=== PATIENT | female | born 1945 | race Caucasian/White ===

== ENCOUNTER 2020-02-04 15:27 | Outpatient (CLI) | payer OTHER, SELFPAY ==
--- NOTE | ~2020-02-04 | MM_ITS ---
EXAMINATION: MM screening [facility] BI w clint HISTORY: Screening mammogram TECHNIQUE: Craniocaudal and mediolateral oblique 3-D tomosynthesis images were obtained and synthetic 2-D images were generated. CAD analysis was submitted and interpreted. COMPARISON: 02/14/2019, 01/10/2019, 01/16/2017, 08/07/2013 BREAST PARENCHYMAL COMPOSITION: The breasts are heterogeneously dense, which may obscure small masses . FINDINGS: Scattered benign-appearing calcifications are present. There is no evidence of suspicious m ass, calcification, or architectural distortion to suggest malignancy in either breast. There has bee n no suspicious interval change. IMPRESSION: 1. No mammographic evidence of malignancy. 2. Recommend routine screening mammography in one year. BI-RADS Category 2: Benign finding(s). Reviewed, dictated and finalized at location A.
== END 2020-02-04 15:28 | disposition home or self-care (01) ==
PROVIDERS: PCP Family Medicine; Visit Provider Physician Assistant
DX: Z12.31 Encounter for screening mammogram for malignant neoplasm of breast (principal)
CPT/HCPCS: 77063; 77067

== ENCOUNTER 2020-05-17 09:25 | Emergency (ER) | payer OTHER, SELFPAY ==
--- NOTE | ~2020-05-17 | XR_ITS ---
EXAMINATION: XR chest 2V DATE: 05/17/2020 09:59 INDICATION: Cough and difficulty breathing. TECHNIQUE: frontal and lateral views of the chest were obtained. COMPARISON: Chest radiograph dated 03/19/2018 FINDINGS: Calcified right middle lobe nodule consistent with old granulomatous disease. No other airspace opaci ties, pulmonary edema, pleural effusion or pneumothorax. The cardiomediastinal silhouette is normal. Mild lower thoracic dextroscoliosis with mild to moderate spondylosis. IMPRESSION: 1. No acute cardiopulmonary disease. Reviewed, dictated and finalized at location A.
[2020-05-17 09:40] VITALS: BP 140/77; PULSE 97; RESP 16; TEMP 37.2; O2SAT 95
--- NOTE | 2020-05-17 10:10 | ED.URI ---
HPI - URI/Sore Throat General Chief Complaint: Upper Respiratory Infection Stated Complaint: Cold Sx Time Seen by Provider: 05/17/20 09:58 Source: patient and RN notes reviewed Mode of arrival: ambulatory Limitations: no limitations History of Present Illness HPI Narrative: Patient presents today complaining of cough for months , that is now productive x2 days. 2-day history of shortness of breath, and wheezing since this morning. Denies fever, congestion, rhinorrhea. No history of COPD or asthma. She has been using an inhaler from previous bronchitis since last night, which has provided some relief. MD elicited complaint: cough Related Data Home Medications Medication Instructions Recorded Confirmed aspirin [Aspir-81] 81 mg PO DAILY 06/01/19 05/17/20 Allergies Allergy/AdvReac Type Severity Reaction Status Date / Time lisinopril Allergy Unknown Cough Verified 05/06/20 10:37 Review of Systems Review of Systems: Narrative: CONSTITUTIONAL: Denies body aches, fever, chills, or sweats. EYES: Denies visual changes, redness, or discharge. ENT: Denies rhinorrhea, congestion, sore throat, or otalgia. CARDIOVASCULAR: Denies chest pain, palpitations, or edema. RESPIRATORY: + Cough, occasional shortness of breath, wheezing GASTROINTESTINAL: Denies abdominal pain, nausea, vomiting, or diarrhea. GENITOURINARY: Denies dysuria or hematuria. SKIN: Denies rash, itching, or wounds. MUSCULOSKELETAL: Denies back pain, joint pain, or myalgia. NEUROLOGIC: Denies headache, numbness, tingling, or weakness. PSYCH: Denies depression or anxiety. [facility] Past Medical History Medical History HLD (hyperlipidemia) HTN (hypertension) Type 2 diabetes mellitus with hyperglycemia Family History Family History Mother Hypertension Family history of Alzheimer's disease Social History Social History Smoking status: Never smoker Second hand tobacco smoke exposure: No Alcohol intake: never Substance use: never Substance use type: does not use Gender identity (if verbalized by the patient): Female Comments At time of signature, I have reviewed and agree with nursing past medical, surgical, social and family history unless otherwise noted. Please see nursing chart for further information. There is no relevant family history pertinent to the presenting complaint Exam Narrative: Exam Narrative: GENERAL: Well-appearing, well-nourished, and in no acute distress. HEAD: Normocephalic, atraumatic. EYES: EOMI. No redness or drainage. Conjunctivae normal. ENT: Mucous membranes pink and moist. Nares clear. No rhinorrhea. TMs normal bilaterally. Throat normal. Uvula midline. NECK: Normal AROM. Supple. No lymphadenopathy. CHEST: No respiratory distress. Inspiratory and expiratory wheezes in the right upper and middle lobes. Expiratory wheezes in the left lobes and right lower lobe. HEART: Regular rate and rhythm. No murmur appreciated. Normal peripheral pulses. EXTREMITIES: Normal range of motion. No edema. SKIN: Warm, dry, no rash. Capillary refill normal. Normal skin turgor. NEURO: No focal deficits. Alert and oriented x3. Gait steady. PSYCH: Normal affect. No signs of depression or anxiety. Course Vital Signs Vital signs: Vital Signs Temperature 99.0 F 05/17/20 09:40 Pulse Rate 97 05/17/20 09:40 Respiratory Rate 16 05/17/20 09:40 Blood Pressure 140/77 05/17/20 09:40 Pulse Oximetry 95 05/17/20 09:40 Temperature 99.0 F 05/17/20 09:40 Pulse Rate 97 05/17/20 09:40 Respiratory Rate 16 05/17/20 09:40 Blood Pressure 140/77 05/17/20 09:40 Pulse Oximetry 95 05/17/20 09:40 Reviewed. Pt has been instructed to follow up with her PCP regarding her elevated blood pressure today. MDM - URI/Sore Throat Differential Diagnosis Differential
== END 2020-05-17 10:22 | disposition home or self-care (01) ==
PROVIDERS: Emergency Provider Nurse Practitioner; PCP Family Medicine
DX: J40 Bronchitis, not specified as acute or chronic (principal); E78.5 Hyperlipidemia, unspecified; I10 Essential (primary) hypertension; E11.9 Type 2 diabetes mellitus without complications
CPT/HCPCS: 71046; 99213; G0463

== ENCOUNTER 2021-02-05 08:39 | Outpatient (CLI) | payer OTHER, SELFPAY ==
--- NOTE | ~2021-02-05 | MM_ITS ---
EXAMINATION: MM screening [facility] BI w clint HISTORY: Screening mammogram TECHNIQUE: Craniocaudal and mediolateral oblique 3-D tomosynthesis images were obtained and synthetic 2-D images were generated. CAD analysis was submitted and interpreted. COMPARISON: 02/04/2020, 01/25/2019, 01/18/2019, 01/16/2017 BREAST PARENCHYMAL COMPOSITION: The breasts are heterogeneously dense, which may obscure small masses . FINDINGS: Scattered benign-appearing calcifications are present. There is no evidence of suspicious m ass, calcification, or architectural distortion to suggest malignancy in either breast. There has bee n no suspicious interval change. IMPRESSION: 1. No mammographic evidence of malignancy. 2. Recommend routine screening mammography in one year. BI-RADS Category 2: Benign finding(s). Reviewed, dictated and finalized at location A.
== END 2021-02-05 08:40 | disposition home or self-care (01) ==
LOC: ANHIMG 08:41
PROVIDERS: PCP Family Medicine; Visit Provider Family Medicine
DX: Z12.31 Encounter for screening mammogram for malignant neoplasm of breast (principal)
CPT/HCPCS: 77063; 77067

== ENCOUNTER 2021-05-30 13:24 | Emergency (ER) | payer OTHER, SELFPAY ==
[2021-05-30 13:34] VITALS: BP 144/74; PULSE 110; RESP 16; TEMP 37.7; O2SAT 97
[2021-05-30 13:54] VITALS: BP 144/74; PULSE 110; RESP 16; TEMP 37.7; O2SAT 97
--- NOTE | 2021-05-30 14:04 | ED.URI ---
HPI - URI/Sore Throat General Chief Complaint: Upper Respiratory Infection Stated Complaint: Congestion Time Seen by Provider: 05/30/21 13:54 Source: patient and RN notes reviewed Mode of arrival: ambulatory Limitations: no limitations History of Present Illness HPI Narrative: Patient presents today complaint of a 1 week history of dry cough and states that her bilateral ribs were sore when she coughs. Denies any additional symptoms to include sore throat, headache, ear pain, fever, shortness of breath. Eating and drinking normally. She has not been using any [id number] medications for symptoms prior to arrival, but used an old albuterol inhaler without any relief of symptoms. MD elicited complaint: cough Related Data Home Medications Medication Instructions Recorded Confirmed aspirin [Aspir-81] 81 mg PO DAILY 06/01/19 05/30/21 Allergies Allergy/AdvReac Type Severity Reaction Status Date / Time lisinopril Allergy Unknown Cough Verified 05/30/21 13:47 Review of Systems Review of Systems: CONSTITUTIONAL: Denies body aches, fever, chills, or sweats. EYES: Denies visual changes, redness, or discharge. ENT: Denies rhinorrhea, congestion, sore throat, or otalgia. CARDIOVASCULAR: Denies chest pain, palpitations, or edema. RESPIRATORY: Denies dyspnea. + Cough GASTROINTESTINAL: Denies abdominal pain, nausea, vomiting, or diarrhea. GENITOURINARY: Denies dysuria or hematuria. SKIN: Denies rash, itching, or wounds. MUSCULOSKELETAL: Denies back pain, joint pain, or myalgia. NEUROLOGIC: Denies headache, numbness, tingling, or weakness. PSYCH: Denies depression or anxiety. [facility] Past Medical History Medical History HLD (hyperlipidemia) HTN (hypertension) Type 2 diabetes mellitus with hyperglycemia Family History Family History Mother Hypertension Family history of Alzheimer's disease Social History Social History Smoking status: Former smoker Second hand tobacco smoke exposure: No Alcohol intake: never Substance use: never Substance use type: does not use Gender identity (if verbalized by the patient): Female Sexual Orientation (if Verbalized by the Patient): Straight or Heterosexual Comments At time of signature, I have reviewed and agree with nursing past medical, surgical, social and family history unless otherwise noted. Please see nursing chart for further information. There is no relevant family history pertinent to the presenting complaint Exam Narrative: GENERAL: Well-appearing, well-nourished, and in no acute distress. HEAD: Normocephalic, atraumatic. EYES: EOMI. No redness or drainage. Conjunctivae normal. ENT: Mucous membranes pink and moist. Nares clear. No rhinorrhea. TMs normal bilaterally. Throat normal. Uvula midline. NECK: Normal AROM. Supple. No lymphadenopathy. CHEST: No respiratory distress. Clear to auscultation. HEART: Regular rate and rhythm. No murmur appreciated. Normal peripheral pulses. EXTREMITIES: Normal range of motion. No edema. SKIN: Warm, dry, no rash. Capillary refill normal. Normal skin turgor. NEURO: No focal deficits. Alert and oriented x3. Gait steady. PSYCH: Normal affect. No signs of depression or anxiety. Course Vital Signs Vital signs: Vital Signs Temperature 99.9 F H 05/30/21 13:34 Pulse Rate 110 H 05/30/21 13:34 Respiratory Rate 16 05/30/21 13:34 Blood Pressure 144/74 H 05/30/21 13:34 Pulse Oximetry 97 05/30/21 13:34 Temperature 99.9 F H 05/30/21 13:54 Pulse Rate 110 H 05/30/21 13:54 Respiratory Rate 16 05/30/21 13:54 Blood Pressure 144/74 H 05/30/21 13:54 Pulse Oximetry 97 05/30/21 13:54 Reviewed. Pt has been instructed to follow up with her PCP regarding her elevated blood pressure today. MDM - URI/Sore Throat Different
== END 2021-05-30 14:10 | disposition home or self-care (01) ==
PROVIDERS: Emergency Provider Nurse Practitioner; PCP Family Medicine
DX: J40 Bronchitis, not specified as acute or chronic (principal); Z87.891 Personal history of nicotine dependence; E78.5 Hyperlipidemia, unspecified; I10 Essential (primary) hypertension; E11.9 Type 2 diabetes mellitus without complications
CPT/HCPCS: 99213; G0463

== ENCOUNTER 2021-06-06 13:58 | Emergency (ER) | payer OTHER, SELFPAY ==
--- NOTE | ~2021-06-06 | XR_ITS ---
EXAMINATION: XR chest 2V DATE: 06/06/2021 14:50 INDICATION: Cough. TECHNIQUE: Frontal and lateral views of the chest were obtained. COMPARISON: Chest 2 views 05/17/2020 FINDINGS: There is mild scarring at the lung apices. There are airspace opacities in the lower lung z ones. No pleural effusion or pneumothorax. The heart size is normal. IMPRESSION: 1. Airspace opacities in the lower lung zones, consistent with atelectasis versus pneumonia. Reviewed, dictated and finalized at location A. RITY AND PRIVACY CONSULTANT IMPRESSION: 1. Airspace opacities in the lower lung zones, consistent with atelectasis vers us pneumonia.
[2021-06-06 14:08] VITALS: BP 128/59; PULSE 100; RESP 18; TEMP 36.6; O2SAT 92
--- NOTE | 2021-06-06 14:36 | ED.URI ---
HPI - URI/Sore Throat General Chief Complaint: Upper Respiratory Infection Stated Complaint: Cough Time Seen by Provider: 06/06/21 14:00 Source: patient, RN notes reviewed and old records reviewed Mode of arrival: ambulatory Limitations: no limitations History of Present Illness HPI Narrative: 75-year-old female presents to the [facility] with complaints of continued cough after being seen 1 week ago and diagnosed with bronchitis. Has taken her prednisone with no relief. Patient denies fevers. Denies having any follow-up. States that her right lower lobe is uncomfortable in the posterior area. Denies back pain, pain is not reproducible. Denies chest pain, abdominal pain. No nausea vomiting or diarrhea. Has a history of high cholesterol, hypertension and type 2 diabetes Related Data Home Medications Medication Instructions Recorded Confirmed aspirin [Aspir-81] 81 mg PO DAILY 06/01/19 05/30/21 Allergies Allergy/AdvReac Type Severity Reaction Status Date / Time lisinopril Allergy Unknown Cough Verified 06/06/21 14:27 Review of Systems Review of Systems: All systems reviewed & are unremarkable except as noted in HPI and below Constitutional: Constitutional: Reports no additional constitutional complaints, Denies chills and Denies fever(s) Eyes: Eyes: Reports no additional eye complaints ENT: Reports system reviewed and no additional complaints, except as documented Cardiovascular: Cardiovascular: Reports no additional cardiovascular complaints Respiratory: Respiratory: Reports as per HPI, Reports chest congestion, Reports cough, Denies dyspnea and Denies wheezing Gastrointestinal: Gastrointestinal: Reports no additional gastrointestinal complaints Musculoskeletal: Musculoskeletal: Reports no additional musculoskeletal complaints Integumentary/Breasts: Skin/Breast: Reports system reviewed and no additional complaints, except as docu Neurologic: Reports system reviewed and no additional complaints, except as documented Psychiatric: Psychiatric: Reports no additional psychiatric complaints Allergic/Immunologic: Allergic/Immunologic: Reports no additional allergic/immunologic complaints [facility] Past Medical History Medical History HLD (hyperlipidemia) HTN (hypertension) Type 2 diabetes mellitus with hyperglycemia Family History Family History Mother Hypertension Family history of Alzheimer's disease Social History Social History Smoking status: Former smoker Second hand tobacco smoke exposure: No Alcohol intake: never Substance use: never Substance use type: does not use Gender identity (if verbalized by the patient): Female Sexual Orientation (if Verbalized by the Patient): Straight or Heterosexual Comments At the time of my signature, I reviewed and agree with the nursing past medical, surgical, social, and family history. There is no relevant family history pertinent to the patient complaint. Exam Const: General: no acute distress, alert and ill appearing chronically; not acutely Nutritional Appearance: well nourished Orientation/consciousness: patient oriented x3 Limitations: no limitations HENMT: Head: normal to inspection Ears: external ears normal, TM's normal bilaterally and EAC's normal Eyes: Conjunctivae: conjunctivae normal Pupils: Equal, round and reactive pupils present Neck: Neck: normal visual inspection, no lymphadenopathy and no meningeal signs Chest: Chest palpation & inspection: normal inspection of the chest Resp: Effort & Inspection: normal respiratory effort and no use of accessory muscles Auscultation: no crackles, no rales, no rhonchi, wheezes right lower and diminished lung sounds bilateral in the lower lung palacios Cardio: Rate: regular rate Rhythm: regular rhythm GI: GI Palp: Yes Soft to palpation and No Te
== END 2021-06-06 15:15 | disposition home or self-care (01) ==
PROVIDERS: Emergency Provider Nurse Practitioner; PCP Family Medicine
DX: J18.9 Pneumonia, unspecified organism (principal); Z87.891 Personal history of nicotine dependence; E78.5 Hyperlipidemia, unspecified; I10 Essential (primary) hypertension; E11.9 Type 2 diabetes mellitus without complications
CPT/HCPCS: 71046; 99213; G0463

== ENCOUNTER 2021-06-11 11:56 | Inpatient (IN) | payer OTHER, SELFPAY ==
--- NOTE | ~2021-06-11 | CT_ITS ---
EXAMINATION: CTA chest PE protocol EXAM DATE: 06/12/2021 09:50 INDICATION: Shortness of breath. TECHNIQUE: Spiral CTA of the chest (pulmonary arteries) was performed with 100 cc Omnipaque 350 intr avenous contrast injection. Images were acquired during the pulmonary arterial phase. Coronal maxi mum intensity projection 3D-reconstructions were created by the technologist on dedicated workstation . Axial, coronal and sagittal reformatted images were reviewed. The dose-length product (DLP) for t his examination was 293.77 mGy-cm. The exposure was tailored according to patient size (auto mA exp osure control), and iterative reconstruction (ASIR) was used as additional dose reduction technique. There is no prior study for comparison. FINDINGS: Pulmonary arteries are well opacified and without intraluminal filling defects. No thora cic aortic dissection. There is moderate amount of right lower lobe peripheral predominant groundgla ss airspace disease with regions of confluence, smaller amount of involvement and the other lobes kenneth aterally. Consistent with acute infectious process, could be COVID 19 given community prevalence, but other infectious etiology also possible. There is mediastinal and right hilar lymphadenopathy which is most likely reactive but a 3 month follow-up chest CT is recommended. There are no pleural or pericardial effusions. Tracheobronchial tree is patent. There is no media stinal, hilar or axillary lymphadenopathy. There is no pneumothorax. Heart normal in size. Ther e is moderate coronary arterial calcification, arterial sclerosis. Upper abdomen is unremarkable. There is thoracic spondylosis without osteoblastic or osteolytic lesions identified. IMPRESSION: 1. Right lower lobe predominant airspace disease, distribution and appearance consistent with subacu te COVID pneumonia. Other etiologies also possible. 2. Mediastinal, right hilar lymphadenopathy most likely reactive; 3 month follow-up chest CT. 3. No pulmonary emboli. Reviewed, dictated and finalized at location A. NESS DIRECTOR IMPRESSION: 1. Right lower lobe predominant airspace disease, distribution and appearance consistent with subacute COVID pneumonia. Other etiologies also possible. 2. Mediastinal, right hilar lymphadenopathy most likely reactive; 3 month foll ow-up chest CT. 3. No pulmonary emboli.
--- NOTE | ~2021-06-11 | XR_ITS ---
XR chest 2V DATE: 06/11/2021 12:45 INDICATION: Cough. Shortness of breath. Recent pneumonia. TECHNIQUE: PA and lateral views COMPARISON: 06/06/2021 2 view chest FINDINGS: Normal heart size. No hilar or mediastinal enlargement. There are mild bibasilar infiltrate and/atelectasis, right greater than left. No pleural effusion or pulmonary vascular congestion or pneumothorax. There is dextroscoliosis and degenerative spurring of the thoracic spine. IMPRESSION: Mild bibasilar infiltrate and/atelectasis, right greater than left Reviewed, dictated and finalized at location A. D INSURANCE SALES MANAGER
[2021-06-11 12:06] VITALS: BP 119/65; PULSE 92; RESP 18; TEMP 36.2; O2SAT 95
--- NOTE | 2021-06-11 12:12 | ECG_ITS ---
Measurements Intervals [place] Rate: 104 P: 48 HI: 160 QRS: 70 QRSD: 87 T: 45 QT: 318 QTc: 419 Interpretive Statements SINUS TACHYCARDIA VENTRICULAR PREMATURE COMPLEX DELAYED PRECORDIAL R/S TRANSITION BASELINE ARTIFACT- I, II, AVR, AVL BORDERLINE ECG Electronically Signed On 06-11-2021 13:06:01 BIG MACHINE CONSULTANT by Paul Phillips D.O.
[2021-06-11 12:43] LABS: Basophils Percent Auto 0.3 % (0.2-1.2); Eosinophils Absolute Auto 0.1 K/mm3 (0-0.3); Eosinophils Percent Auto 1.8 % (0-4.4); Hematocrit 33.9 % (37.0-47.0); Hemoglobin 11.3 g/dL (12.0-15.0); Immature Granulocyte Absolute 0.08 K/mm3 (0.00-0.031); Immature Granulocyte Percent A 1.1 % (0-0.5); Lymphocytes Absolute Auto 1.46 K/mm3 (0.9-3.2); Lymphocytes Percent Auto 19.2 % (18.3-44.2); Mean Corpuscular HGB Conc 33.3 g/dl (32-36); Mean Corpuscular Hemoglobin 29.7 pg (26-34); Mean Corpuscular Volume 89.2 fl (80-100); Mean Platelet Volume 9.6 fl (7.4-10.4); Monocytes Absolute Auto 0.7 K/mm3 (0.1-0.6); Monocytes Percent Auto 9.2 % (2.6-8.5); Neutrophils Absolute Auto 5.2 K/mm3 (1.3-6.7); Neutrophils Percent Auto 68.4 % (45.5-73.1); Platelet Count Result 148 k/mm3 (150-375); Red Cell Distribution Width 13.7 % (11.5-14.5); White Blood Count 7.6 K/mm3 (4.5-10.0)
[2021-06-11 12:54] LABS: Alanine Aminotransferase 20 U/L (4-35); Albumin Level 3.9 g/dL (3.5-5.1); Alkaline Phosphatase 45 U/L (38-126); Anion Gap 7 mmol/L (8-16); Aspartate Amino Transferase 41 U/L (14-36); Bilirubin,Total 0.7 mg/dL (0.2-1.3); Blood Urea Nitrogen 15 mg/dL (7-17); Calcium 10.6 mg/dL (8.4-10.2); Carbon Dioxide 27 mmol/L (22-30); Chloride 100 mmol/L (98-107); Estimated Glomerular Filt Rate 49; Glucose 138 mg/dL (65-110); Potassium 4.2 mmol/L (3.4-5.0); Sodium 134 mmol/L (137-145)
[2021-06-11 13:21] LABS: Anisocytosis 1+ (NORMAL); Platelet Estimate Adequate (Adequate)
[2021-06-11 13:22] LABS: Ovalocytes 1+ (NORMAL)
[2021-06-11 15:24] VITALS: PULSE 97; RESP 17; O2SAT 90
[2021-06-11 15:32] VITALS: BP 108/63; PULSE 90; RESP 20; O2SAT 90
[2021-06-11 15:45] VITALS: PULSE 95; RESP 19; O2SAT 93
--- NOTE | 2021-06-11 16:00 | ED.SOB ---
HPI - SOB/Dyspnea General Chief Complaint: Shortness of Breath/Dyspnea Stated Complaint: low 02 at pmd office Time Seen by Provider: 06/11/21 15:15 Source: patient Mode of arrival: wheelchair Limitations: no limitations History of Present Illness HPI Narrative: This is a 75-year-old female that presents to the emergency department for low oxygen saturation. Reports cold symptoms ongoing over the last 2 weeks. Reports a productive cough and shortness of breath. She was seen in urgent care and given a steroid pack without relief. She was once again seen and has finished levofloxacin without relief in her symptoms. She was seen by her primary today, noted to have low oxygen saturation so sent to the emergency department for further evaluation. Denies fever, chest pain, or lower extremity edema. Related Data Home Medications Medication Instructions Recorded Confirmed aspirin [Aspir-81] 81 mg PO DAILY 06/01/19 06/11/21 Allergies Allergy/AdvReac Type Severity Reaction Status Date / Time lisinopril Allergy Unknown Cough Verified 06/11/21 11:07 Review of Systems Review of Systems: CONSTITUTIONAL: Denies fever CARDIOVASCULAR: Denies chest pain, or edema. RESPIRATORY: Reports cough and dyspnea. All systems reviewed & are unremarkable except as noted in HPI and below PMFSH Past Medical History Medical History HLD (hyperlipidemia) HTN (hypertension) Type 2 diabetes mellitus with hyperglycemia Family History Family History Mother Hypertension Family history of Alzheimer's disease Social History Social History Smoking status: Never smoker Second hand tobacco smoke exposure: No Alcohol intake: never Substance use: never Substance use type: does not use Gender identity (if verbalized by the patient): Female Sexual Orientation (if Verbalized by the Patient): Straight or Heterosexual Exam Narrative: GENERAL: Well-appearing, well-nourished, and in no acute distress. HEAD: Normocephalic, atraumatic. EYES: PERRLA and EOMI. ENT: Nares clear, no rhinorrhea or epistaxis. Mucous membranes moist. Oropharynx without tonsillar hypertrophy exudate or other lesions. Bilateral TMs pearly brown non-bulging NECK: Supple. No adenopathy or masses. CHEST: No respiratory distress. Rales at the lung bases. No wheezes or rhonchi HEART: Regular rate and rhythm. No murmur heard. Normal peripheral pulses. EXTREMITIES: Normal range of motion. No edema. SKIN: Warm, dry, no rash. NEURO: No focal deficits. Alert and oriented x3. PSYCH: Normal mood and affect Course Consultations Consultation #1: Spoke with hospitalist about patient and work-up who accepts admission Date: 06/11/21 Time: 16:28 Vital Signs Vital signs: Vital Signs Temperature 97.2 F L 06/11/21 12:06 Pulse Rate 92 06/11/21 12:06 Respiratory Rate 18 06/11/21 12:06 Blood Pressure 119/65 06/11/21 12:06 Pulse Oximetry 95 06/11/21 12:06 Temperature 97.2 F L 06/11/21 12:06 Pulse Rate 95 06/11/21 15:45 Respiratory Rate 19 06/11/21 15:45 Blood Pressure 108/63 06/11/21 15:32 Pulse Oximetry 93 06/11/21 15:45 MDM - SOB/Dyspnea MDM Narrative Medical decision making narrative: Patient presents to the emergency department for ongoing cold symptoms over the last 2 weeks. Has finished steroid and antibiotic without relief. Was seen by her primary today and noted to be hypoxic. Initially patient's oxygen saturation in the mid 90s. She did desat into the upper 80s, so was placed on 4 L nasal cannula and has been stable on that. CBC is without leukocytosis. Does show normocytic anemia with hemoglobin of 11.3 and mild thrombocytopenia. Metabolic panel with kidney function that appears to be around her baseline. Influenza screen is negative. Covid swab was sent. Chest x-ray sh
[2021-06-11 18:01] VITALS: BMI 29.9
--- NOTE | 2021-06-11 18:06 | ADMGEN ---
This patient, Jaida Trevizo, was admitted to [facility] Surg Room 330-01 at 1800. Patient/family oriented to hospital policies and general routines including ID bracelet, bed and alarms, visiting hours, pain management, procedures, bathroom and other care routines, personal items, smoking policy, room service/diet, and visiting hours. Information on how to activate the Rapid Response Team has been discussed. Patient/Family are encouraged to report perceived risks to care and to ask questions if they do not understand what they are told or what they should do.
[2021-06-11 18:53] VITALS: BP 137/81; PULSE 119; RESP 18; TEMP 36.6; O2SAT 95
[2021-06-11 20:00] VITALS: BP 129/67; PULSE 98; RESP 22; TEMP 37.2; O2SAT 91; O2SAT 94
[2021-06-11 23:21] LABS: Glucose Point of Care 102 mg/dl (65-105)
[2021-06-12] VITALS (10 sets, daily range): BP systolic 116–132; BP diastolic 50–78; PULSE 84–98; RESP 18–20; TEMP 36.2–37.2; O2SAT 92–96
--- NOTE | 2021-06-12 00:05 | PM.IMHP ---
H&P: HPI History of Present Illness Date/Time: 06/11/21 3676 this is a 75-year-old diabetic patient who has been sick for approximately 2 weeks. Approximately 2 weeks ago the patient went to urgent care and was diagnosed with bronchitis. The patient stated that she was given steroids and still did not feel better after she completed the steroids. The patient then returned back to the urgent care and had a chest x-ray she was then told that she has pneumonia. She was started on Levaquin and steroids. The patient had a follow-up visit with her primary care doctor today at 11:00 a.m.. She was given a nebulizer treatment and she said that her pulse ox went down and then she was sent to the emergency room. The patient has not been tested for COVID until today. The patient tested negative for influenza and her COVID swab is pending. Chest x-ray was read as mild bibasilar infiltrate and atelectasis, right greater than left. The patient was started on Rocephin and azithromycin. The patient is being admitted to inpatient services on the date of service 06/11/2021. Chief Complaint: Shortness of breath Review of Systems Review of Systems: All systems reviewed & are unremarkable except as noted in HPI and below Constitutional: Constitutional: Reports as per HPI and Reports no additional constitutional complaints Eyes: Eyes: Reports as per HPI and Reports no additional eye complaints ENT: Reports system reviewed and no additional complaints, except as documented and Reports Normal hearing present Cardiovascular: Cardiovascular: Reports no additional cardiovascular complaints Respiratory: Respiratory: Reports no additional respiratory complaints and Reports no additional respiratory complaints Gastrointestinal: Gastrointestinal: Reports as per HPI and Reports no additional gastrointestinal complaints Musculoskeletal: Musculoskeletal: Reports no additional musculoskeletal complaints Integumentary/Breasts: Skin/Breast: Reports system reviewed and no additional complaints, except as docu and Reports as per HPI Neurologic: Reports system reviewed and no additional complaints, except as documented, Reports as per HPI and Reports Normal hearing present Psychiatric: Psychiatric: Reports no additional psychiatric complaints and Reports as per HPI Endocrine: Endocrine: Reports no additional endocrine complaints Hematologic/Lymphatic: Hematologic/Lymphatic: Reports no additional hematologic/lymphatic complaints Allergic/Immunologic: Allergic/Immunologic: Reports no additional allergic/immunologic complaints [facility] Past Medical History Medical History (Updated 06/11/21 @ 16:25 by Lu Keene PA-C) HLD (hyperlipidemia) HTN (hypertension) Type 2 diabetes mellitus with hyperglycemia Surgical History Surgical History (Updated 06/12/21 @ 00:08 by Dianelys Lamar NP) H/O foot surgery Removal of planter's wart Family History Family History (Updated 06/12/21 @ 00:16 by Dianelys Lamar NP) Mother Hypertension Dementia Father Alzheimer's dementia Social History Social History (Updated 06/12/21 @ 00:16 by Dianelys Lamar NP) Social History: The patient has never been and does not have any children. 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 The patient does not have a durable power attorney lawyer for healthcare. The patient is a lifelong nonsmoker. The patient does not use any marijuana alcohol or illicit drugs. Code status full code Smoking status: Never smoker Second hand tobacco smoke exposure: No Alcohol intake: never Substance use: never Substance use type: does not use Gender identity (if verbalized by the patient): Female Sexual Orientation (if Verbalized by the Patient): Straight or Heterosexual Spiritual care concerns: No Meds H
[2021-06-12] MEDS: metFORMIN HCL XR 500 MG TAB.SR.24H 2000 MG PO ×2 (01:03→17:06)
[2021-06-12] MEDS: ALBUTEROL SULFATE (*SP) INHALER 2 PUFF INHALATION ×4 (02:46→18:04)
[2021-06-12 08:06] LABS: Glucose Point of Care 130 mg/dl (65-105)
[2021-06-12 08:54] LABS: Basophils Percent Auto 0.3 % (0.2-1.2); Eosinophils Absolute Auto 0.2 K/mm3 (0-0.3); Eosinophils Percent Auto 2.7 % (0-4.4); Hemoglobin 10.2 g/dL (12.0-15.0); Immature Granulocyte Absolute 0.07 K/mm3 (0.00-0.031); Immature Granulocyte Percent A 1.2 % (0-0.5); Lymphocytes Percent Auto 20.2 % (18.3-44.2); Mean Corpuscular HGB Conc 32.9 g/dl (32-36); Mean Corpuscular Hemoglobin 29.4 pg (26-34); Mean Corpuscular Volume 89.3 fl (80-100); Mean Platelet Volume 9.6 fl (7.4-10.4); Monocytes Absolute Auto 0.7 K/mm3 (0.1-0.6); Monocytes Percent Auto 11.6 % (2.6-8.5); Neutrophils Absolute Auto 3.8 K/mm3 (1.3-6.7); Platelet Count Result 125 k/mm3 (150-375); Red Blood Count 3.47 M/mm3 (4.2-5.4); Red Cell Distribution Width 13.6 % (11.5-14.5); White Blood Count 5.9 K/mm3 (4.5-10.0)
[2021-06-12 09:15] LABS: Alanine Aminotransferase 17 U/L (4-35); Albumin Level 3.4 g/dL (3.5-5.1); Alkaline Phosphatase 36 U/L (38-126); Anion Gap 5 mmol/L (8-16); Aspartate Amino Transferase 35 U/L (14-36); Bilirubin,Total 0.4 mg/dL (0.2-1.3); Blood Urea Nitrogen 12 mg/dL (7-17); Calcium 9.7 mg/dL (8.4-10.2); Carbon Dioxide 28 mmol/L (22-30); Chloride 102 mmol/L (98-107); Estimated CRCL calculation 38 ml/min; Estimated Glomerular Filt Rate 49; Glucose 141 mg/dL (65-110); Lactate Dehydrogenase 446 U/L (313-618); Magnesium 1.6 mg/dL (1.6-2.3); Potassium 4.1 mmol/L (3.4-5.0); Sodium 135 mmol/L (137-145)
[2021-06-12] MEDS: ENOXAPARIN 40 MG/0.4 ML SYRINGE SUB-Q (09:19)
[2021-06-12 10:48] LABS: Thyroid Stimulating Hormone Reflex 0.806 uIU/mL (0.465-4.68)
[2021-06-12 12:05] LABS: Glucose Point of Care 129 mg/dl (65-105)
--- NOTE | 2021-06-12 13:01 | PM.IMPN ---
Progress Note: A&P Assessment and Plan (1) Acute respiratory failure with hypoxia: Code(s): J96.01 - Acute respiratory failure with hypoxia Status: Acute Assessment and Plan: The chest x-ray was read as mild bibasilar infiltrate and or atelectasis right greater than left. The patient had completed Levaquin outpatient as well as steroids. The patient was told that she has bronchitis as well as pneumonia. CTA chest no PE. Shows right lower lobe predominant airspace disease, distribution and appearance consistent with subacute COVID pneumonia on albuterol inhaler, get a sputum specimen. Check lactic acid level. Patient is COVID pending. She is afebrile and does not have leukocytosis. Blood cultures are pending If positive for COVID will start Decadron and/or remdesivir (2) Pneumonia: Qualifiers: Laterality: right Lung location: lower lobe of lung Pneumonia type: due to unspecified organism Qualified Code(s): J18.9 - Pneumonia, unspecified organism Code(s): J18.9 - Pneumonia, unspecified organism Status: Acute Assessment and Plan: Azithromycin and Rocephin CTA showing likely COVID await formal COVID test result Recently finished course of Levaquin as well as steroid Albuterol inhaler p.r.n. (3) Person under investigation for COVID-19: Code(s): Z20.822 - Contact with and (suspected) exposure to COVID-19 Status: Acute Assessment and Plan: The patient was placed on droplet and contact isolation. (4) CKD (chronic kidney disease) stage 3, GFR 30-59 ml/min: Code(s): N18.30 - Chronic kidney disease, stage 3 unspecified Status: Acute Assessment and Plan: Continue to monitor. The patient is at her baseline. The patient is on metformin. She insisted on continuing with her metformin and she is also on losartan. Continue same (5) Type 2 diabetes mellitus with hyperglycemia: Code(s): E11.65 - Type 2 diabetes mellitus with hyperglycemia Status: Acute Assessment and Plan: Patient was insistent on taking her metformin. Will do Accu-Cheks AC and HS and check A1c (6) HLD (hyperlipidemia): Code(s): E78.5 - Hyperlipidemia, unspecified Status: Acute Assessment and Plan: Continue with fenofibrate And atorvastatin (7) HTN (hypertension): Code(s): I10 - Essential (primary) hypertension Status: Acute Assessment and Plan: Continue with losartan reset Subjective Date/time seen: 06/12/21 13:01 Interval history: HPI: this is a 75-year-old diabetic patient who has been sick for approximately 2 weeks. Approximately 2 weeks ago the patient went to urgent care and was diagnosed with bronchitis. The patient stated that she was given steroids and still did not feel better after she completed the steroids. The patient then returned back to the urgent care and had a chest x-ray she was then told that she has pneumonia. She was started on Levaquin and steroids. The patient had a follow-up visit with her primary care doctor today at 11:00 a.m.. She was given a nebulizer treatment and she said that her pulse ox went down and then she was sent to the emergency room. The patient has not been tested for COVID until today. The patient tested negative for influenza and her COVID swab is pending. Chest x-ray was read as mild bibasilar infiltrate and atelectasis, right greater than left. The patient was started on Rocephin and azithromycin. The patient is being admitted to inpatient services on the date of service 06/11/2021. 06/12/2021 feels okay. Still has cough. Chest pain with coughing. Remains about the same compared to yesterday. Review of Systems Review of Systems: All systems reviewed & are unremarkable except as noted in HPI and below Exam Narrative: GENERAL: The patient is well developed, not in acute distress HEENT: Nonicteric sclerae, PERRLA, EOMI. Oropharynx clear. Moist mucous membranes. Conjunctivae
[2021-06-12 16:52] LABS: Glucose Point of Care 136 mg/dl (65-105)
[2021-06-12 18:14] LABS: SARS-CoV-2 RNA PCR Positive
[2021-06-12 21:05] LABS: Glucose Point of Care 120 mg/dl (65-105)
--- NOTE | 2021-06-12 21:05 | PC.NURSE ---
checked patient's POC cap glucose at on 06/12 @2100 as ordered patient was 120. Glucometer and did not dock correctly after revival.
[2021-06-13] VITALS (7 sets, daily range): BP systolic 111–126; BP diastolic 40–70; PULSE 78–102; RESP 16–18; TEMP 36.3–37; O2SAT 89–97
--- NOTE | 2021-06-13 04:18 | PCRCNOTE ---
RT not available due to emergency to administer 02:00 albuterol inhaler to pt.
[2021-06-13 06:57] LABS: Basophils Absolute Auto 0.1 K/mm3 (0.0-0.1); Basophils Percent Auto 0.8 % (0.2-1.2); Eosinophils Absolute Auto 0.3 K/mm3 (0-0.3); Eosinophils Percent Auto 4.3 % (0-4.4); Hemoglobin 10.4 g/dL (12.0-15.0); Immature Granulocyte Absolute 0.09 K/mm3 (0.00-0.031); Immature Granulocyte Percent A 1.4 % (0-0.5); Lymphocytes Absolute Auto 1.32 K/mm3 (0.9-3.2); Lymphocytes Percent Auto 21.1 % (18.3-44.2); Mean Corpuscular HGB Conc 32.5 g/dl (32-36); Mean Corpuscular Hemoglobin 29.1 pg (26-34); Mean Corpuscular Volume 89.6 fl (80-100); Mean Platelet Volume 9.4 fl (7.4-10.4); Monocytes Absolute Auto 0.8 K/mm3 (0.1-0.6); Monocytes Percent Auto 12.6 % (2.6-8.5); Neutrophils Absolute Auto 3.7 K/mm3 (1.3-6.7); Neutrophils Percent Auto 59.8 % (45.5-73.1); Platelet Count Result 139 k/mm3 (150-375); Red Blood Count 3.57 M/mm3 (4.2-5.4); Red Cell Distribution Width 13.6 % (11.5-14.5); White Blood Count 6.3 K/mm3 (4.5-10.0)
[2021-06-13 07:17] LABS: Anion Gap 5 mmol/L (8-16); Blood Urea Nitrogen 11 mg/dL (7-17); Calcium 9.9 mg/dL (8.4-10.2); Carbon Dioxide 30 mmol/L (22-30); Chloride 105 mmol/L (98-107); Estimated CRCL calculation 38 ml/min; Estimated Glomerular Filt Rate 49; Glucose 141 mg/dL (65-110); Potassium 4.6 mmol/L (3.4-5.0); Sodium 140 mmol/L (137-145)
[2021-06-13 08:21] LABS: Glucose Point of Care 116 mg/dl (65-105)
[2021-06-13] MEDS: ENOXAPARIN 40 MG/0.4 ML SYRINGE SUB-Q (08:32)
[2021-06-13] MEDS: ASPIRIN 81 MG ENTERIC TABLET PO (08:32)
[2021-06-13] MEDS: FENOFIBRATE 160 MG TABLET PO (08:32)
[2021-06-13] MEDS: LOSARTAN POTASSIUM 25 MG TABLET PO (08:33)
--- NOTE | 2021-06-13 08:51 | PM.IMPN ---
Progress Note: A&P Assessment and Plan (1) Acute respiratory failure with hypoxia: Code(s): J96.01 - Acute respiratory failure with hypoxia Status: Acute Assessment and Plan: The chest x-ray was read as mild bibasilar infiltrate and or atelectasis right greater than left. The patient had completed Levaquin outpatient as well as steroids. The patient was told that she has bronchitis as well as pneumonia. CTA chest no PE. Shows right lower lobe predominant airspace disease, distribution and appearance consistent with subacute COVID pneumonia on albuterol inhaler, get a sputum specimen. Check lactic acid level. Patient is COVID pending. She is afebrile and does not have leukocytosis. Blood cultures are pending Positive for COVID started Decadron and remdesivir (2) Pneumonia: Qualifiers: Laterality: right Lung location: lower lobe of lung Pneumonia type: due to unspecified organism Qualified Code(s): J18.9 - Pneumonia, unspecified organism Code(s): J18.9 - Pneumonia, unspecified organism Status: Acute Assessment and Plan: Azithromycin and Rocephin CTA showing likely COVID await formal COVID test result Recently finished course of Levaquin as well as steroid Albuterol inhaler p.r.n. Continue to monitor (3) Person under investigation for COVID-19: Code(s): Z20.822 - Contact with and (suspected) exposure to COVID-19 Status: Acute Assessment and Plan: The patient was placed on droplet and contact isolation. (4) CKD (chronic kidney disease) stage 3, GFR 30-59 ml/min: Code(s): N18.30 - Chronic kidney disease, stage 3 unspecified Status: Acute Assessment and Plan: Continue to monitor. The patient is at her baseline. The patient is on metformin. She insisted on continuing with her metformin and she is also on losartan. Continue same Continue to monitor (5) Type 2 diabetes mellitus with hyperglycemia: Code(s): E11.65 - Type 2 diabetes mellitus with hyperglycemia Status: Acute Assessment and Plan: Patient was insistent on taking her metformin. Will do Accu-Cheks AC and HS and check A1c Continue to monitor (6) HLD (hyperlipidemia): Code(s): E78.5 - Hyperlipidemia, unspecified Status: Acute Assessment and Plan: Continue with fenofibrate And atorvastatin Follow-up in outpatient setting (7) HTN (hypertension): Code(s): I10 - Essential (primary) hypertension Status: Acute Assessment and Plan: Continue with losartan reset Continue to monitor Subjective Date/time seen: 06/13/21 08:51 I wish I was not here. Interval history: HPI: this is a 75-year-old diabetic patient who has been sick for approximately 2 weeks. Approximately 2 weeks ago the patient went to urgent care and was diagnosed with bronchitis. The patient stated that she was given steroids and still did not feel better after she completed the steroids. The patient then returned back to the urgent care and had a chest x-ray she was then told that she has pneumonia. She was started on Levaquin and steroids. The patient had a follow-up visit with her primary care doctor today at 11:00 a.m.. She was given a nebulizer treatment and she said that her pulse ox went down and then she was sent to the emergency room. The patient has not been tested for COVID until today. The patient tested negative for influenza and her COVID swab is pending. Chest x-ray was read as mild bibasilar infiltrate and atelectasis, right greater than left. The patient was started on Rocephin and azithromycin. The patient is being admitted to inpatient services on the date of service 06/11/2021. 06/12/2021 feels okay. Still has cough. Chest pain with coughing. Remains about the same compared to yesterday. 06/13/2021 patient feels be much better still has a cough but has started to improved no issues overnight Review of Systems Review of Systems: All systems re
[2021-06-13] MEDS: ALBUTEROL SULFATE (*SP) INHALER 2 PUFF INHALATION ×3 (09:18→20:10)
[2021-06-13 09:39] LABS: Prothrombin Time 13.3 Seconds (11.1-14.7)
[2021-06-13] MEDS: ATORVASTATIN 20 MG TABLET PO (09:45)
[2021-06-13 10:05] LABS: Alanine Aminotransferase 17 U/L (4-35); Estimated CRCL calculation 38 ml/min; Estimated Glomerular Filt Rate 49
[2021-06-13] MEDS: REMDESIVIR 200 MG/NS 250 ML 200 MG/250 ML BAG 250 MG IVPB (11:32)
[2021-06-13 12:41] LABS: Glucose Point of Care 174 mg/dl (65-105)
[2021-06-13] MEDS: metFORMIN HCL XR 500 MG TAB.SR.24H 2000 MG PO (17:00)
[2021-06-13] MEDS: INSULIN ASPART (*BKC) 100 UNITS/ML SUB-Q (17:01)
[2021-06-13 17:26] LABS: Glucose Point of Care 284 mg/dl (65-105)
[2021-06-13 21:10] LABS: Glucose Point of Care 231 mg/dl (65-105)
[2021-06-14] VITALS (8 sets, daily range): BP systolic 102–141; BP diastolic 53–72; PULSE 76–99; RESP 16–20; TEMP 36–36.9; O2SAT 90–95
[2021-06-14] MEDS: ALBUTEROL SULFATE (*SP) INHALER 2 PUFF INHALATION ×4 (01:50→20:41)
[2021-06-14 06:11] LABS: INR 1.1; Prothrombin Time 14.5 Seconds (11.1-14.7)
[2021-06-14 06:20] LABS: Alanine Aminotransferase 17 U/L (4-35); Estimated CRCL calculation 42 ml/min; Estimated Glomerular Filt Rate 54
[2021-06-14] MEDS: ATORVASTATIN 20 MG TABLET PO (08:33)
[2021-06-14] MEDS: ASPIRIN 81 MG ENTERIC TABLET PO (08:33)
[2021-06-14] MEDS: FENOFIBRATE 160 MG TABLET PO (08:33)
[2021-06-14] MEDS: ENOXAPARIN 40 MG/0.4 ML SYRINGE SUB-Q (08:33)
[2021-06-14 08:34] LABS: Glucose Point of Care 157 mg/dl (65-105)
--- NOTE | 2021-06-14 09:15 | PM.IMPN ---
Progress Note: A&P Assessment and Plan (1) Acute respiratory failure with hypoxia: Code(s): J96.01 - Acute respiratory failure with hypoxia Status: Acute Assessment and Plan: The chest x-ray was read as mild bibasilar infiltrate and or atelectasis right greater than left. The patient had completed Levaquin outpatient as well as steroids. The patient was told that she has bronchitis as well as pneumonia. CTA chest no PE. Shows right lower lobe predominant airspace disease, distribution and appearance consistent with subacute COVID pneumonia on albuterol inhaler, get a sputum specimen. Check lactic acid level. Patient is COVID pending. She is afebrile and does not have leukocytosis. Blood cultures are pending Positive for COVID started Decadron and remdesivir Patient continues to do well continue ceftriaxone , Zithromax and remdesivir (2) Pneumonia: Qualifiers: Laterality: right Lung location: lower lobe of lung Pneumonia type: due to unspecified organism Qualified Code(s): J18.9 - Pneumonia, unspecified organism Code(s): J18.9 - Pneumonia, unspecified organism Status: Acute Assessment and Plan: Azithromycin and Rocephin CTA showing likely COVID await formal COVID test result Recently finished course of Levaquin as well as steroid Albuterol inhaler p.r.n. Continue to monitor Patient responding to Zithromax and Rocephin remdesivir as well (3) Person under investigation for COVID-19: Code(s): Z20.822 - Contact with and (suspected) exposure to COVID-19 Status: Acute Assessment and Plan: The patient was placed on droplet and contact isolation. Patient tested positive for COVID (4) CKD (chronic kidney disease) stage 3, GFR 30-59 ml/min: Code(s): N18.30 - Chronic kidney disease, stage 3 unspecified Status: Acute Assessment and Plan: Continue to monitor. The patient is at her baseline. The patient is on metformin. She insisted on continuing with her metformin and she is also on losartan. Continue same Continue to monitor Will recheck BMP today (5) Type 2 diabetes mellitus with hyperglycemia: Code(s): E11.65 - Type 2 diabetes mellitus with hyperglycemia Status: Acute Assessment and Plan: Patient was insistent on taking her metformin. Will do Accu-Cheks AC and HS and check A1c Continue to monitor Insulin sliding scale as needed (6) HLD (hyperlipidemia): Code(s): E78.5 - Hyperlipidemia, unspecified Status: Acute Assessment and Plan: Continue with fenofibrate And atorvastatin Follow-up in outpatient setting (7) HTN (hypertension): Code(s): I10 - Essential (primary) hypertension Status: Acute Assessment and Plan: Continue with losartan reset Continue to monitor Well controlled Subjective Date/time seen: 06/14/21 09:15 I feel good Interval history: HPI: this is a 75-year-old diabetic patient who has been sick for approximately 2 weeks. Approximately 2 weeks ago the patient went to urgent care and was diagnosed with bronchitis. The patient stated that she was given steroids and still did not feel better after she completed the steroids. The patient then returned back to the urgent care and had a chest x-ray she was then told that she has pneumonia. She was started on Levaquin and steroids. The patient had a follow-up visit with her primary care doctor today at 11:00 a.m.. She was given a nebulizer treatment and she said that her pulse ox went down and then she was sent to the emergency room. The patient has not been tested for COVID until today. The patient tested negative for influenza and her COVID swab is pending. Chest x-ray was read as mild bibasilar infiltrate and atelectasis, right greater than left. The patient was started on Rocephin and azithromycin. The patient is being admitted to inpatient services on the date of service 06/11/2021. 06/12/2021 feels okay. Still has cou
[2021-06-14] MEDS: REMDESIVIR 100 MG/NS 250 ML 100 MG/250 ML BAG 250 MG IVPB (10:17)
[2021-06-14 11:33] LABS: Glucose Point of Care 180 mg/dl (65-105)
[2021-06-14 13:53] LABS: Basophils Percent Auto 0.2 % (0.2-1.2); Eosinophils Percent Auto 0.1 % (0-4.4); Hematocrit 30.2 % (37.0-47.0); Immature Granulocyte Absolute 0.06 K/mm3 (0.00-0.031); Immature Granulocyte Percent A 0.7 % (0-0.5); Lymphocytes Absolute Auto 0.87 K/mm3 (0.9-3.2); Lymphocytes Percent Auto 9.5 % (18.3-44.2); Mean Corpuscular HGB Conc 33.1 g/dl (32-36); Mean Corpuscular Hemoglobin 29.4 pg (26-34); Mean Corpuscular Volume 88.8 fl (80-100); Mean Platelet Volume 9.8 fl (7.4-10.4); Monocytes Absolute Auto 0.4 K/mm3 (0.1-0.6); Monocytes Percent Auto 4.7 % (2.6-8.5); Neutrophils Absolute Auto 7.8 K/mm3 (1.3-6.7); Neutrophils Percent Auto 84.8 % (45.5-73.1); Platelet Count Result 156 k/mm3 (150-375); Red Cell Distribution Width 13.4 % (11.5-14.5); White Blood Count 9.2 K/mm3 (4.5-10.0)
[2021-06-14 14:02] LABS: Anion Gap 8 mmol/L (8-16); Blood Urea Nitrogen 19 mg/dL (7-17); Calcium 10.2 mg/dL (8.4-10.2); Carbon Dioxide 28 mmol/L (22-30); Chloride 101 mmol/L (98-107); Estimated CRCL calculation 38 ml/min; Estimated Glomerular Filt Rate 49; Glucose 257 mg/dL (65-110); Potassium 4.9 mmol/L (3.4-5.0); Sodium 137 mmol/L (137-145)
[2021-06-14 16:11] LABS: Glucose Point of Care 322 mg/dl (65-105)
[2021-06-14] MEDS: metFORMIN HCL XR 500 MG TAB.SR.24H 2000 MG PO (17:03)
[2021-06-14] MEDS: INSULIN ASPART (*BKC) 100 UNITS/ML SUB-Q (17:05)
[2021-06-14 21:42] LABS: Glucose Point of Care 217 mg/dl (65-105)
[2021-06-15] VITALS: BP 120/68; PULSE 88; RESP 16; TEMP 36.2; O2SAT 94
[2021-06-15] MEDS: ALBUTEROL SULFATE (*SP) INHALER 2 PUFF INHALATION ×3 (02:22→13:01)
[2021-06-15 05:31] VITALS: BP 113/65; PULSE 78; RESP 16; TEMP 36.1; O2SAT 96
[2021-06-15 07:18] LABS: Alanine Aminotransferase 17 U/L (4-35); Estimated CRCL calculation 35 ml/min; Estimated Glomerular Filt Rate 44
[2021-06-15 07:47] LABS: INR 1.1; Prothrombin Time 13.7 Seconds (11.1-14.7)
[2021-06-15 08:00] VITALS: BP 108/63; PULSE 81; RESP 16; TEMP 36.5; O2SAT 94; O2SAT 95
[2021-06-15 08:43] LABS: Glucose Point of Care 147 mg/dl (65-105)
[2021-06-15] MEDS: FENOFIBRATE 160 MG TABLET PO (09:08)
[2021-06-15] MEDS: LOSARTAN POTASSIUM 25 MG TABLET PO (09:08)
[2021-06-15] MEDS: ATORVASTATIN 20 MG TABLET PO (09:08)
[2021-06-15] MEDS: ASPIRIN 81 MG ENTERIC TABLET PO (09:09)
[2021-06-15] MEDS: ENOXAPARIN 40 MG/0.4 ML SYRINGE SUB-Q (09:09)
--- NOTE | 2021-06-15 10:15 | PM.DS ---
DS: Admitting Diagnosis Discharge Date Date of service 06/15/2021 at 10:15am Admitting Diagnosis COVID Pneumonia DS: Discharge Diagnosis Discharge Diagnosis (1) Acute respiratory failure with hypoxia: Code(s): J96.01 - Acute respiratory failure with hypoxia Status: Acute Assessment and Plan: The chest x-ray was read as mild bibasilar infiltrate and or atelectasis right greater than left. The patient had completed Levaquin outpatient as well as steroids. The patient was told that she has bronchitis as well as pneumonia. CTA chest no PE. Shows right lower lobe predominant airspace disease, distribution and appearance consistent with subacute COVID pneumonia on albuterol inhaler, get a sputum specimen. Check lactic acid level. Patient is COVID pending. She is afebrile and does not have leukocytosis. Blood cultures are pending Positive for COVID started Decadron and remdesivir Patient continues to do well continue ceftriaxone , Zithromax and remdesivir (2) Pneumonia: Qualifiers: Laterality: right Lung location: lower lobe of lung Pneumonia type: due to unspecified organism Qualified Code(s): J18.9 - Pneumonia, unspecified organism Code(s): J18.9 - Pneumonia, unspecified organism Status: Acute Assessment and Plan: Azithromycin and Rocephin CTA showing likely COVID await formal COVID test result Recently finished course of Levaquin as well as steroid Albuterol inhaler p.r.n. Continue to monitor Patient responding to Zithromax and Rocephin remdesivir as well (3) Person under investigation for COVID-19: Code(s): Z20.822 - Contact with and (suspected) exposure to COVID-19 Status: Acute Assessment and Plan: The patient was placed on droplet and contact isolation. Patient tested positive for COVID (4) CKD (chronic kidney disease) stage 3, GFR 30-59 ml/min: Code(s): N18.30 - Chronic kidney disease, stage 3 unspecified Status: Acute Assessment and Plan: Continue to monitor. The patient is at her baseline. The patient is on metformin. She insisted on continuing with her metformin and she is also on losartan. Continue same Continue to monitor Will recheck BMP today (5) Type 2 diabetes mellitus with hyperglycemia: Code(s): E11.65 - Type 2 diabetes mellitus with hyperglycemia Status: Acute Assessment and Plan: Patient was insistent on taking her metformin. Will do Accu-Cheks AC and HS and check A1c Continue to monitor Insulin sliding scale as needed (6) HLD (hyperlipidemia): Code(s): E78.5 - Hyperlipidemia, unspecified Status: Acute Assessment and Plan: Continue with fenofibrate And atorvastatin Follow-up in outpatient setting (7) HTN (hypertension): Code(s): I10 - Essential (primary) hypertension Status: Acute Assessment and Plan: Continue with losartan reset Continue to monitor Well controlled DS: Summary Hospital Course Hospital Course: Patient is a 75-year-old female with a past medical history of diabetes, HLD, HTN who presented to the ED with complaints of not feeling better after being treated for bronchitis. Patient was COVID swabbed which did reveal that the patient is covid positive. Patient has been treated with antibiotics, remdesivir, and steroids. Patient stated that she is feeling better, and that she is ready to go home. She is sitting in bed with no oxygen needs playing on her computer. She stated that the only complaints that she has that she needs more ice water. She denies chest pain, shortness of breath, nausea, vomiting, abdominal pain, weakness, fatigue, sweats, fevers, or chills. CTA was performed showed no pulmonary emboli, chest x-ray indicated atelectasis. Labs have been stable throughout the visit. Sputum culture grew yeast. Patient has no reported fever. I did speak to patient about getting vaccinated however she told me that it was a vaccine that it was
[2021-06-15] MEDS: REMDESIVIR 100 MG/NS 250 ML 100 MG/250 ML BAG 250 MG IVPB (10:53)
[2021-06-15 12:00] VITALS: BP 114/61; PULSE 80; RESP 16; TEMP 36.3; O2SAT 94
[2021-06-15 12:05] LABS: Glucose Point of Care 151 mg/dl (65-105)
[2021-06-15 13:05] VITALS: O2SAT 93
== END 2021-06-15 15:20 | disposition home or self-care (01) | DRG 177 ==
LOC: ANHED 16:25 → ANH3MEDSUR 16:37
PROVIDERS: Internal Medicine; Nurse Practitioner; Physician Assistant; Admitting Provider Family Medicine; Emergency Provider Emergency Medicine; PCP Family Medicine; Visit Provider Internal Medicine
DX: U07.1 COVID-19 (principal); J96.01 Acute respiratory failure with hypoxia; J12.82 Pneumonia due to coronavirus disease 2019; I12.9 Hypertensive chronic kidney disease with stage 1 through stage 4 chronic kidney disease, or unspecified chronic kidney disease; N18.30 Chronic kidney disease, stage 3 unspecified; E11.22 Type 2 diabetes mellitus with diabetic chronic kidney disease; E11.65 Type 2 diabetes mellitus with hyperglycemia; E78.5 Hyperlipidemia, unspecified
CPT/HCPCS: 36415; 71046; 71275; 80048; 80053; 82565; 82948; 83605; 83615; 83735; 84443; 84460; 85025; 85610; 87040; 87070; 87205; 87804; 93005; 94640; 96365; 99285; A9270; C9803; G0378; J0456; J0696; J1100; J1650; J1815; Q9967; U0003; U0005

== ENCOUNTER 2021-12-13 13:10 | Outpatient (CLI) | payer MEDICARE, SELFPAY ==
--- NOTE | ~2021-12-13 | DEXA_ITS ---
Bone Density Report Name: JOSE RAFAEL CARDENAS Age: 76 Sex: Female Ethnicity: White Date of : 1945 Indication: postmenopausal; screening for osteoporosis; height loss; Referring Provider: GUI TAM Study: Bone densitometry was performed. Exam Date: December 13, 2021 Accession number: [id number] Bone Density: Region BMD T-score Z-score Classification AP Spine(L1-L4) 1.245 1.8 4.2 Normal Femoral Neck (Left) 0.738 -1.0 1.0 Normal Total Hip (Left) 1.071 1.1 2.8 Normal Femoral Neck (Right) 0.756 -0.8 1.2 Normal Total Hip (Right) 1.029 0.7 2.5 Normal Total Hip Mean 1.050 0.9 2.7 Normal World Health Organization criteria for BMD impression classify patients as: Normal (T-score at or above -1.0), Osteopenia (T-score between -1.0 and -2.5), or Osteoporosis (T-score at or below -2.5). 10-year Fracture Risk: FRAX not reported because: All T-scores for Spine Total, Hip Total, Femoral Neck at or above -1.0 Previous Exams: Region Exam Age BMD T-score BMD Change BMD Change Date g/cm2 vs Baseline vs Previous AP Spine (L1-L4) 12/13/2021 76 1.245 1.8 0.043 (3.5%)* 0.043 (3.5%)* 01/16/2017 71 1.202 1.4 Total Hip(Left) 12/13/2021 76 1.071 1.1 -0.016 (-1.5%) -0.016 (-1.5%) 01/16/2017 71 1.087 1.2 Total Hip(Right) 12/13/2021 76 1.029 0.7 -0.011 (-1.0%) -0.011 (-1.0%) 01/16/2017 71 1.040 0.8 *Denotes significance at 95% confidence level, LSC for AP Spine = 0.022 g/cm2, LSC for Total Hip = 0.027 g/cm2 Clinical Information Provided by Patient: Patient maximum height was 62 Menopause Age: 47 No regular weight bearing exercise Drinks caffeinated beverages Onset of menses at age 13 Number of children 0 Impression: The patient has normal bone mass. No significant bone loss was observed. Discussion: BONE DENSITY IS ABOVE THE MINIMUM DESIRABLE LEVEL AT ALL SKELETAL SITES TESTED. This patient?s bone mineral density is above the minimum desirable level (T-score -1.0 or better) at all sites measured. The patient should follow a healthful lifestyle (good nutrition with adequate calcium and vitamin D, and appropriate weight-bearing exercise). Follow-Up: Consider repeating this study in 5 years or sooner if there is some new clinical indication. Reported by: MARY JANE on 12/13/2021 1:40:00 PM. Reviewed, dictated and finalized at location [facility]
== END 2021-12-13 13:11 | disposition home or self-care (01) ==
LOC: ANHIMG 13:15
PROVIDERS: PCP Family Medicine
DX: Z78.0 Asymptomatic menopausal state (principal)
CPT/HCPCS: 77080

== ENCOUNTER 2022-12-07 09:31 | Outpatient (CLI) | payer OTHER, SELFPAY ==
--- NOTE | ~2022-12-07 | MM_ITS ---
EXAMINATION: MM screening [facility] BI w clint HISTORY: Screening mammogram TECHNIQUE: Craniocaudal and mediolateral oblique 3-D tomosynthesis images were obtained and synthetic 2-D images were generated. CAD analysis was submitted and interpreted. COMPARISON: 02/05/2021, 02/04/2020 BREAST PARENCHYMAL COMPOSITION: The breasts are heterogeneously dense, which may obscure small masses . FINDINGS: No suspicious mass, calcification, or architectural distortion are identified in either perlita ast to suggest malignancy. There has been no suspicious interval change. IMPRESSION: 1. No mammographic evidence of malignancy. 2. Recommend routine screening mammography in one year. BI-RADS Category 1: Negative Reviewed, dictated and finalized at location A.
== END 2022-12-07 09:32 | disposition home or self-care (01) ==
LOC: ANHIMG 09:32
PROVIDERS: PCP Family Medicine; Visit Provider Physician Assistant
DX: Z12.31 Encounter for screening mammogram for malignant neoplasm of breast (principal)
CPT/HCPCS: 77063; 77067

== ENCOUNTER 2024-04-17 11:57 | Outpatient (CLI) | payer OTHER, SELFPAY ==
--- NOTE | ~2024-04-17 | MM_ITS ---
EXAMINATION: MM screening [facility] w [facility]int HISTORY: Screening TECHNIQUE: Craniocaudal and mediolateral oblique 3-D tomosynthesis images were obtained and synthetic 2-D images were generated. CAD analysis was submitted and interpreted. COMPARISON: Comparison to multiple prior studies sequentially, with oldest reviewed study dated 01/16. BREAST PARENCHYMAL COMPOSITION: Dense: The breasts are heterogeneously dense, which may obscure small masses FINDINGS: There is no evidence of suspicious mass, calcification, or architectural distortion to sugg est malignancy in either breast. There has been no suspicious interval change. IMPRESSION: 1. No mammographic evidence of malignancy. 2. Recommend routine screening mammography in one year. BI-RADS Category 1: Negative Reviewed, dictated and finalized at location B.
== END 2024-04-17 11:58 | disposition home or self-care (01) ==
LOC: ANHIMG 11:59
PROVIDERS: PCP Family Medicine; Visit Provider Family Medicine
DX: Z12.31 Encounter for screening mammogram for malignant neoplasm of breast (principal)
CPT/HCPCS: 77063; 77067

== ENCOUNTER 2025-05-19 07:35 | Outpatient (CLI) | payer MEDICARE, SELFPAY ==
--- NOTE | ~2025-05-19 | MM_ITS ---
EXAMINATION: MM screening [facility] BI w cilnt HISTORY: Screening TECHNIQUE: Craniocaudal and mediolateral oblique 3-D tomosynthesis images were obtained and synthetic 2-D images were generated. CAD analysis was submitted and interpreted. COMPARISON: Comparison to multiple prior studies sequentially, with oldest reviewed study dated 01/18/2019. BREAST PARENCHYMAL COMPOSITION: Dense: The breasts are heterogeneously dense, which may obscure small masses FINDINGS: There is no evidence of suspicious mass, calcification, or architectural distortion to suggest malignancy in either breast. There has been no suspicious interval change. IMPRESSION: 1. No mammographic evidence of malignancy. 2. Recommend routine screening mammography in one year. BI-RADS Category 1: Negative Reviewed, dictated and finalized at location B.
--- OUTSIDE RECORDS SUMMARY | 2025-05-19 07:42 | XMS_ITS | Clinical Summary ---
Author Organization [facility] Address [facility] [place] [address] Care Team Providers Care Veterinary Livestock Inspector Name Role Phone Unavailable Primary Care Provider Unavailabl e Social History Tobacco Use Types Packs/Day Years Used Date Smoking Tobacco: Never Assessed Comments Unknown Sex and Gender Information Value Date Recorded Sex Assigned at Not on file Legal Sex Female 6:34 PM CDT Gender Identity Not on file Sexual Orientation Not on file Plan of Treatment Health Maintenance Due Date Last Done Comments Hepatitis C 1963 DTaP, Tdap and Td Vaccines ( 1 - Tdap) 1966 Pneumococcal Vaccine: 50+ Ye ars (1 of 1 - PCV) 1997 Zoster Vaccines (1 of 2) 1997 Dexa Scan (General) 2012 RSV Immunization or 60+ Years (1 - 1-dose 75+ series) 2022 COVID-19 Vaccine ( - 2024-2 6 season) 2025 Influenza Adult (#1) 2025 Hepatitis A Vaccines Aged Out No long er eligible based on patient's age to complete this topic Meningococcal B Vaccine Aged Out No l onger eligible based on patient's age to complete this topic Meningococcal Vaccine Aged Out No marco marjorie eligible based on patient's age to complete this topic RSV Immunizations Under 20 Months Aged Out No longer eligible based on patient's age to complete this topic
--- OUTSIDE RECORDS SUMMARY | 2025-05-19 07:42 | XMS_ITS | Clinical Summary ---
Author Organization [facility] [address] Address [address] [place] [address] Care Team Providers Care Surgeon Assistant Name Role Phone Ernesto Russo MD Primary Care Provider Allergies No known active allergies Medications aspirin 81 mg tablet take 1 tablet by oral route every day 0 0 6 Active cinnamon bark 500 mg capsule Take 500 mg by mouth daily. Take 2 tablets po at night Active turmeric, bulk, 95 % powder Take 500 mg by mouth daily. Active losartan (COZAAR) 25 mg tablet Take 1 tablet (25 mg total) by mouth daily. 30 tablet 11 8 Active metFORMIN (GLUCOPHAGE) 500 mg tablet Take 1,500 mg by mouth daily with breakfast. Active fenofibrate (TRIGLIDE) 160 mg tablet Take 160 mg by mouth daily Active APPLE CIDER VINEGAR ORAL Take 450 mg by mouth daily Active loratadine 10 mg capsule Take 10 mg by mouth daily Active predniSONE (DELTASONE) 20 mg tablet Take 20 mg by mouth daily Active fluticasone propionate (FLONASE) 50 mcg/actuation nasal spray Administer 1 spray into each nostril daily Active albuterol HFA (PROVENTIL HFA,VENTOLIN HFA,PROAIR HFA) 90 mcg/actuation inhaler 9 Active atorvastatin (LIPITOR) 20 mg tablet TAKE ONE TABLET BY MOUTH ONCE DAILY 90 tablet 3 0 Active Active Problems Problem Noted Date Diagnosed Date Cough due to JA inhibitor 05/08/2017 Dyslipidemia associated with type 2 diabetes kaley litus 12/15/2015 Overview (10/27/2016): DM type 2 with diabetic dyslipidemia Premature atrial contraction 08/25/2015 Overview (10/27/2016): PAC (premature atrial contraction) Dyslipidemia 08/25/2015 Overview (10/27/2016): Mixed dyslipidemia Obesity with body mass index 30 or greater 08/25 Overview (10/27/2016): Obesity (BMI 30-39.9) Hypertension associated with diabetes 08/25/2015 Overview (10/27/2016): HTN (hypertension), benign Ventricular premature beats 08/25/2015 Overview (10/27/2016): PVC's (premature ventricular contractions) Medical History Medical History Date Comments Hypertension PAC (premature atrial contraction) PVC (premature ventricular contraction) Family History Medical History Relation Name Comments Heart disease Father Heart disease; Hypertension Mother Hypertension; Relation Name Status Comments Father Mother (Age 91) Social History Tobacco Use Types Packs/Day Years Used Date Smoking Tobacco: Never Smokeless Tobacco: Never Alcohol Use Standard Drinks/Week Comments No 0 (1 standard drink = 0.6 oz pur e alcohol) Comments Unknown Sex and Gender Information Value Date Recorded Sex Assigned at Not on file Legal Sex Female 3:23 AM COMPLIANCE DIRECTOR Gender Identity Not on file Sexual Orientation Not on file Obstetrics History Last Filed Vital Signs Vital Sign Reading Time Taken Comments Blood Pressure 126/64 08/09/2019 8:22 AM COMPLIANCE DIRECTOR Pulse 92 08/09/2019 8:22 AM COMPLIANCE DIRECTOR Temperature - - Respiratory Rate - - Oxygen Saturation 90% 08/09/2019 8:22 AM COMPLIANCE DIRECTOR Inhaled Oxygen Concentration - - Weight 78 kg (172 lb) 08/09/2019 8:22 AM COMPLIANCE DIRECTOR Height 157.5 cm (5' 2) 08/09/2019 8:22 AM COMPLIANCE DIRECTOR Body Mass Index 31.46 08/09/2019 8:22 AM COMPLIANCE DIRECTOR Plan of Treatment Not on file Insurance [facility] Care Teams Surgeon Assistant Relationship Specialty Start Date End Date Ernesto Russo MD [address] [place] [address] PCP - General 12/15/15
== END 2025-05-19 07:36 | disposition home or self-care (01) ==
LOC: ANHIMG 07:40
PROVIDERS: PCP Family Medicine; Visit Provider Family Medicine
DX: Z12.31 Encounter for screening mammogram for malignant neoplasm of breast (principal)
CPT/HCPCS: 77063; 77067